=== PATIENT | female | born 1970 | race Hispanic/Latino ===

== ENCOUNTER 2017-02-20 15:59 | Emergency (ER) | payer OTHER ==
[2017-02-20] MEDS ORDERED: Triple Antibiotic Oint 1 GM Packet ONE (16:43)
== END 2017-02-20 16:40 | disposition home or self-care (01) ==
LOC: BURERS 15:59
DX: S61.211A Laceration without foreign body of left index finger without damage to nail, initial encounter (principal); W05.2XXA Fall from non-moving motorized mobility scooter, initial encounter
CPT/HCPCS: 12001